=== PATIENT | female | born 1955 | race Asian ===

== ENCOUNTER 2019-09-07 06:26 | Emergency (ER) | payer BC, MEDICAID ==
[~2019-09-07] VITALS: Ht 167.6 cm; Wt 72.6 kg
--- NOTE | 2019-09-07 06:33 | NUR ---
Patient to ER bed 6 to gown for evaluation. Side rails up.
[2019-09-07 06:35] VITALS: BP_SYST 164
--- NOTE | 2019-09-07 06:35 | NUR ---
ER Dr. Miranda at bedside examining patient.
[2019-09-07] MEDS ORDERED: KETOROLAC TROMETHAMINE 30 MG VIAL IM ONE (06:45)
[2019-09-07] MEDS ORDERED: DIAZEPAM 5 MG TABLET (VALIUM) PO ONE (06:45)
--- NOTE | 2019-09-07 06:45 | NUR ---
Pt BIBA to ED C/O LL back pain for 2 days Hx of Nephrectomy, no other complaints and or injuires noted VSS no s/s of acute distress Resting on gurney rails up
[2019-09-07] MEDS ORDERED: HYDROcodone/ACETAMIN 5-325 MG TAB (NORCO/ VICODIN) PO ONE (07:30)
--- NOTE | 2019-09-07 07:54 | NUR ---
Patient given written and verbal discharge instructions and verbalizes understanding. ER MD discussed with patient the results and treatment provided. Patient in stable condition. ID arm band removed. Rx of norco given. Patient educated on pain management and to follow up with PMD. Pain Scale 4 tolerable. Opportunity for questions provided and answered. Medication side effect fact sheet provided.
[2019-09-07 08:14] VITALS: BP_SYST 147
== END 2019-09-07 07:54 | disposition home or self-care (01) ==
LOC: SED 06:26
DX: S39.012A Strain of muscle, fascia and tendon of lower back, initial encounter (principal); R10.9 Unspecified abdominal pain; Z85.3 Personal history of malignant neoplasm of breast; Z85.43 Personal history of malignant neoplasm of ovary; X50.0XXA Overexertion from strenuous movement or load, initial encounter; Y93.89 Activity, other specified; Y92.89 Other specified places as the place of occurrence of the external cause; Y99.8 Other external cause status
CPT/HCPCS: 81002; 96372; 99283; J1885